=== PATIENT | female | born 1955 | race Caucasian/White ===

== ENCOUNTER 2017-03-30 13:28 | Outpatient (CLI) | payer BC ==
[2017-03-30 16:39] LABS: #Basophils 0.1 thou/uL (0.0-0.2); #Eosinphils 0.2 thou/uL (0.0-0.7); #Lymphocytes 1.2 thou/uL (1.20-3.40); #Monocytes 0.5 thou/uL (0.11-0.59); #Neutrophils 4.8 thou/uL (1.40-6.50); %Basophils 1.1 % (0.0-1.0); %Eosinophils 2.5 % (0.0-10.0); %Lymphocytes 17.5 % (21.0-51.0); %Monocytes 7.6 % (0.0-10.0); %Neutrophils 71.4 % (42.0-75.0); Hemoglobin 15.4 g/dL (12.0-16.0); Mean Corpuscular HGB CONC 34.1 g/dL (32.0-36.0); Mean Corpuscular Hemoglobin 33.7 pg (27.0-31.0); Mean Platelet Volume 6.5 fL (7.4-10.4); Platelet Count 234 thou/uL (130-400); RBC Distribution Width 11.9 % (11.5-14.5); Red Blood Cell (RBC) Count 4.58 mill/uL (4.20-5.40); White Blood Cell (WBC) Count 6.7 thou/uL (4.8-10.8)
[2017-03-30 17:12] LABS: ALT (SGPT) 22 U/L (8-55); AST (SGOT) 23 U/L (5-34); Albumin 4.7 g/dL (3.4-4.8); Alkaline Phosphatase 56 U/L (40-150); Anion Gap 15 mmol/L (10-20); BUN (Urea Nitrogen) 11 mg/dL (9.8-20.1); Calc. Creatinine Clearance 0 mL/min (70-130); Calcium 9.6 mg/dL (7.8-10.44); Carbon Dioxide 27 mmol/L (23-31); Cardiac Risk 1.8 (Less than 4.5); Chloride 105 mmol/L (98-107); Cholesterol 215 mg/dl (< 200 Desired); Estimated GFR-MDRD 72; Globulin 2.8 g/dL (2.4-3.5); Glucose 86 mg/dL (80-115); HDL Cholesterol 117 mg/dL (>60 Neg Risk); LDL Cholesterol, Calculated 82 mg/dL; Protein, Total 7.5 g/dL (6.0-8.3); Sodium 142 mmol/L (136-145); Triglycerides 79 mg/dL (Less than 150)
== END 2017-03-30 13:29 | disposition home or self-care (01) ==
LOC: LABLEX 13:28
PROVIDERS: ATTEND Family Medicine
DX: E78.5 Hyperlipidemia, unspecified (principal); D75.89 Other specified diseases of blood and blood-forming organs
CPT/HCPCS: 80053; 80061; 85025

== ENCOUNTER 2018-11-29 11:14 | Outpatient (CLI) | payer BC ==
--- NOTE | 2018-11-29 16:51 | RAD ---
CHEST TWO VIEWS: Date: 11-29-18 Comparison: 11-22-18 FINDINGS: The right lower lobe pneumonia has all but cleared. Any residual is quite minimal. The lungs are othe rwise clear and the heart is normal in size. There are no effusions. IMPRESSION: Clearing of right lower lobe pneumonia. POS: HOME
== END 2018-11-29 11:15 | disposition home or self-care (01) ==
LOC: BURRAD 11:14
PROVIDERS: ATTEND Nurse Practitioner
DX: J18.1 Lobar pneumonia, unspecified organism (principal)
CPT/HCPCS: 71046

== ENCOUNTER 2021-09-04 12:41 | Outpatient (CLI) | payer MEDICARE, OTHER | END 2021-09-04 12:42 | disposition home or self-care (01) | LOC: BURRAD 12:41 | PROVIDERS: ATTEND Podiatrist | DX: M79.631 Pain in right forearm (principal) ==

== ENCOUNTER 2022-03-20 16:55 | Outpatient (CLI) | payer MEDICARE, OTHER | END 2022-03-20 16:56 | disposition home or self-care (01) | LOC: BURRAD 16:55 | PROVIDERS: ATTEND Registered Nurse Community Health | DX: R19.8 Other specified symptoms and signs involving the digestive system and abdomen (principal) | CPT/HCPCS: 74018 ==

== ENCOUNTER 2022-12-29 13:16 | Emergency (ER) | payer MEDICARE, OTHER | END 2022-12-29 14:07 | disposition home or self-care (01) | LOC: BURERS 13:16 | DX: S83.91XA Sprain of unspecified site of right knee, initial encounter (principal); E78.00 Pure hypercholesterolemia, unspecified; I10 Essential (primary) hypertension; Z79.899 Other long term (current) drug therapy; X50.1XXA Overexertion from prolonged static or awkward postures, initial encounter ==

== ENCOUNTER 2023-10-15 15:27 | Outpatient (CLI) | payer MEDICARE, OTHER | END 2023-10-15 15:28 | disposition home or self-care (01) | LOC: BURRAD 15:27 | PROVIDERS: ATTEND Family Medicine | DX: R07.81 Pleurodynia (principal); R10.11 Right upper quadrant pain | CPT/HCPCS: 74018 ==